=== PATIENT | female | born 1995 | race African-American/Black ===

== ENCOUNTER 2020-01-24 12:06 | Emergency (ER) | payer OTHER, MEDICAID ==
[~2020-01-24] VITALS: Ht 162.6 cm; Wt 68.0 kg
[2020-01-24 13:16] VITALS: BP 109/66
== END 2020-01-24 13:38 | disposition home or self-care (01) ==
LOC: ER 12:06
DX: S46.911A Strain of unspecified muscle, fascia and tendon at shoulder and upper arm level, right arm, initial encounter (principal); S00.83XA Contusion of other part of head, initial encounter; S70.01XA Contusion of right hip, initial encounter; S00.01XA Abrasion of scalp, initial encounter; V43.52XA Car driver injured in collision with other type car in traffic accident, initial encounter; Y93.89 Activity, other specified; Y92.89 Other specified places as the place of occurrence of the external cause; Y99.8 Other external cause status
CPT/HCPCS: 73060

== ENCOUNTER 2020-03-31 04:12 | Emergency (ER) | payer MEDICAID ==
[~2020-03-31] VITALS: Ht 160 cm; Wt 72.6 kg
[2020-03-31 04:18] VITALS: BP 124/67
== END 2020-03-31 07:47 | disposition left against medical advice (07) ==
LOC: ER 04:12
DX: N89.8 Other specified noninflammatory disorders of vagina (principal); Z53.21 Procedure and treatment not carried out due to patient leaving prior to being seen by health care provider

== ENCOUNTER 2020-11-01 05:22 | Emergency (ER) | payer MEDICAID, OTHER ==
[~2020-11-01] VITALS: Ht 160 cm; Wt 72.6 kg
[2020-11-01 11:30] VITALS: BP 111/53
== END 2020-11-01 12:17 | disposition home or self-care (01) ==
LOC: ER 05:22 → EDBD 05:22 → ER 12:17
DX: S80.02XA Contusion of left knee, initial encounter (principal); S20.219A Contusion of unspecified front wall of thorax, initial encounter; M79.642 Pain in left hand; V49.9XXA Car occupant (driver) (passenger) injured in unspecified traffic accident, initial encounter; Y93.89 Activity, other specified; Y92.89 Other specified places as the place of occurrence of the external cause; Y99.8 Other external cause status
CPT/HCPCS: 73562; 81025

== ENCOUNTER 2020-11-02 13:37 | Emergency (ER) | payer MEDICAID, OTHER ==
[~2020-11-02] VITALS: Ht 162.6 cm; Wt 69.9 kg
[2020-11-02 15:12] VITALS: BP 120/58
== END 2020-11-02 15:57 | disposition home or self-care (01) ==
LOC: ER 13:37
DX: M25.562 Pain in left knee (principal); V43.52XD Car driver injured in collision with other type car in traffic accident, subsequent encounter

== ENCOUNTER 2021-11-20 00:49 | Emergency (ER) | payer MEDICAID ==
[~2021-11-20] VITALS: Ht 162.6 cm; Wt 77.1 kg
[2021-11-20 00:49] VITALS: BP 121/76
== END 2021-11-20 06:29 | disposition left against medical advice (07) ==
LOC: ER 00:49
DX: M79.644 Pain in right finger(s) (principal); Z53.21 Procedure and treatment not carried out due to patient leaving prior to being seen by health care provider

== ENCOUNTER 2021-11-22 11:19 | Emergency (ER) | payer MEDICAID ==
[~2021-11-22] VITALS: Ht 162.6 cm; Wt 78.5 kg
[2021-11-22 11:19] VITALS: BP 128/68
== END 2021-11-22 16:46 | disposition left against medical advice (07) ==
LOC: ER 11:19
DX: S69.91XA Unspecified injury of right wrist, hand and finger(s), initial encounter (principal); Z53.21 Procedure and treatment not carried out due to patient leaving prior to being seen by health care provider; X58.XXXA Exposure to other specified factors, initial encounter; Y93.89 Activity, other specified; Y92.89 Other specified places as the place of occurrence of the external cause; Y99.8 Other external cause status